=== PATIENT | male | born 1995 | race Caucasian/White ===

== ENCOUNTER 2016-12-04 17:59 | Emergency (ER) | payer OTHER ==
[~2016-12-04] VITALS: Wt 99.5 kg
[~2016-12-04 17:59] MED LIST: DENIES
[2016-12-04] MEDS ORDERED: IBUP-1542 PO (19:53)
[2016-12-04] MEDS ORDERED: BACL10TA PO (19:54)
[2016-12-04] MEDS ORDERED: HYDR-906 PO (19:54)
--- NOTE | 2016-12-04 19:58 | ERD ---
ER Documentation Chief Complaint Date/Time DATE: 12/04/16 TIME: 19:54 Chief Complaint LOWER BACK PAINX today HPI Patient is a 21-year-old male who presents to the emergency Department with lower back pain 1 day. Patient states that he was squatting at the gym with heavy weights earlier today when his pain started. Patient reports a sharp pain in his mid lower back which does radiate down his right leg. He states he has intermittent tingling and numbness in his right leg. Patient states his current pain level is an 8 out 10. Patient denies taking any pain medication. Patient denies any saddle anesthesia, bowel incontinence, urinary incontinence, fever, chills, nausea, vomiting. Patient reports difficulty ambulating moving secondary to pain. Denies any previous injuries to his lower back. ROS All systems reviewed and are negative except as per history of present illness. Medications Home Meds Active Scripts Hydrocodone/Acetaminophen ([place] 5-325 Tablet) 1 Each Tablet, 1 TAB PO Q6H Y for PAIN, #7 TAB Prov:UZIEL MERIDA PA-C 12/04/16 Baclofen* (Baclofen*) 10 Mg Tablet, 10 MG PO Q8, #20 TAB Prov:UZIEL MERIDA-C 12/04/16 Ibuprofen* (Motrin*) 600 Mg Tab, 600 MG PO Q6, #30 TAB Prov:UZIEL MERIDA PA-C 12/04/16 Reported Medications [Denies] No Conflict Check 06/25/11 Allergies Allergies: Coded Allergies: No Known Allergies (Verified Allergy, Mild, 06/25/11) PMhx/Soc History of Surgery: No Anesthesia Reaction: No Hx Neurological Disorder: No Hx Respiratory Disorders: No Hx Cardiac Disorders: No Hx Psychiatric Problems: No Hx Miscellaneous Medical Probl: Yes (DENIES MEDICAL PROBLEMS) Hx Alcohol Use: No Hx Substance Use: No Hx Tobacco Use: Yes FmHx Family History: No diabetes Physical Exam Vitals Vital Signs Date Time Temp Pulse Resp B/P Pulse Ox O2 Delivery O2 Flow Rate FiO2 12/04/16 21:00 98.1 69 18 127/61 100 Room Air 12/04/16 18:01 98.1 77 18 130/77 99 Physical Exam GENERAL: Well-developed, well-nourished male. Appears in no acute distress. HEAD: Normocephalic, atraumatic. EYES: Pupils are equally reactive bilaterally. EOMs grossly intact. No conjunctival erythema. ENT: Moist mucous membranes. No uvula deviation. No kissing tonsils. NECK: Supple. No lymphadenopathy or thyromegaly. No meningismus. LUNG: Clear to auscultation bilaterally. No rhonchi, wheezing, rales or coarse breath sounds. HEART: Regular rate and rhythm. No murmurs, rubs or gallops. ABDOMEN: No scars, ecchymosis or rashes noted. Soft, nontender, and nondistended. Positive bowel sounds in all four quadrants. No rebound tenderness , no guarding. (-) McBurneys point tenderness. No CVA tenderness. BACK: No midline tenderness. Tender to palpation in the lumbar paraspinal muscles bilaterally. Positive right straight leg raise. EXTREMITIES: Equal pulses bilaterally. No peripheral clubbing, cyanosis or edema. No unilateral leg swelling. NEUROLOGIC: Alert and oriented. Moving all four extremities without any difficulty. Normal speech. Steady gait however decreased gait speed secondary to pain. SKIN: Normal color. Warm and dry. No rashes or lesions. Procedures/MDM ED COURSE: The patient was stable throughout ED course. I kept the patient and/or family informed of laboratory and diagnostic imaging results throughout the ED course. DIAGNOSTIC IMAGING: Read by radiologist. DIAGNOSTIC IMAGING REPORT Patient: CASEY PRABHAKAR : 1995 Age: 21 Sex: M MR #: [id number] DOS: 12/04/16 1934 Ordering MD: UZIEL MERIDA PA-C Location: [facility] Room/Bed: PROCEDURE: XR L-Spine. CLINICAL INDICATION: Low back pain. TECHNIQUE: AP, lateral, and cone down views of the lumbar spine were obtained. COMPARISON: None FINDINGS: Bilateral pars defects are seen at L5-S1. Approximately 3 mm of anterolisthesis at L5-S1 is seen. The remainder of the lumbar lordosis is straightened. Mild to moderate disk height loss at L5-S1 is seen. The vertebral body and remaining disk space heights are normal. No acute fracture or subluxation is seen. No paravertebral soft tissue abnormality is seen. IMPRESSION: Approximately 3 mm of anterolisthesis at L5-S1 secondary to bilateral pars defects. RPTAT: HPNM Physician Issa Date Time Electronically viewed and signed by Lamont Villa Physician on 12/04/2016 20 :29 / CC: UZIEL MERIDA PA-C PROCEDURES: None. MEDICATIONS GIVEN: Patient was offered analgesics and emergency department however he declined it. MEDICAL DECISION MAKING: This is a 21-year-old male who presents with lower back pain with radiation down his right leg status post lifting heavy weights and squatting while at the gym earlier today. Vital signs were reviewed. Patient was afebrile. Patient denied any saddle anesthesia, urinary incontinence, bowel incontinence. Lumbar x-ray showed Approximately 3 mm of anterolisthesis at L5-S1 secondary to bilateral pars defects. Given these findings, the patients presentation is most consistent with anterolisthesis at L5-S1. I have a much lower clinical concern for cauda equine syndrome, spinal fractures, epidural abscess, spinal metastases , osteomyelitis, aortic dissection, ruptured or leaking AA, DJD, pyelonephritis or nephrolithiasis. PRESCRIPTIONS: Ibuprofen, Baclofen, [place] DISCHARGE: At this time, patient is stable for discharge and outpatient management. I discussed the x-ray findings with my supervising physician, Dr. Nelson, who agrees the patient is stable for outpatient management. Patient was advised to not lift any heavy weights 1-2 weeks. RICE therapy and ROM exercises. XR report and CD given to the patient. I have instructed the patient to follow-up with his /her primary care physician in 1-2 days. I have discussed with the patient the possibility of needing to see an evaluation specialist for further workup and imaging if the pain persists. I have instructed the patient to promptly return to the ER for any new or worsening symptoms including increased pain, swelling, warmth, urinary incontinence, stool incontinence, weakness or numbness. The patient and/or family expressed understanding of and agreement with this plan. All questions were answered. Home care instructions were provided. Departure Diagnosis: Primary Impression: Anterolisthesis Additional Impression: Injury of back Encounter type: initial encounter Qualified Code: S39.92XA - Injury of back , initial encounter Condition: Stable Patient Instructions: Back Pain W/ Sciatica Referrals: DEYVI MICHELE (PCP) Additional Instructions: No heavy lifting for the next week. Back ROM motions advised as discussed. See handout information. Medication as prescribed. If symptoms persist patient may need to see an evaluation specialist and/or obtain physical therapy for further management. Call your primary care doctor TOMORROW for an appointment during the next 1-2 days.See the doctor sooner or return here if your condition worsens before your appointment time. UZIEL MERIDA PA-C Dec 04, 2016 19:58
--- NOTE | 2016-12-04 20:29 | RADRPT ---
PROCEDURE: XR L-Spine. CLINICAL INDICATION: Low back pain. TECHNIQUE: AP, lateral, and cone down views of the lumbar spine were obtained. COMPARISON: None FINDINGS: Bilateral pars defects are seen at L5-S1. Approximately 3 mm of anterolisthesis at L5-S1 is seen. The remainder of the lumbar lordosis is straightened. Mild to moderate disk height loss at L5-S1 is seen. The vertebral body and remaining disk space heights are normal. No acute fracture or subluxat ion is seen. No paravertebral soft tissue abnormality is seen. IMPRESSION: Approximately 3 mm of anterolisthesis at L5-S1 secondary to bilateral pars defects. RPTAT: HPNM Physician Issa Date Time Electronically viewed and signed by Physician Issa on 12/04/2016 20:29 /
[2016-12-04 21:00] VITALS: BP 127/61; PULSE 69; RESP 18; TEMP 98.1
== END 2016-12-04 21:00 | disposition home or self-care (01) ==
LOC: FTE 17:59
DX: M43.16 Spondylolisthesis, lumbar region (principal); X50.0XXA Overexertion from strenuous movement or load, initial encounter; Y92.39 Other specified sports and athletic area as the place of occurrence of the external cause; Z72.0 Tobacco use
CPT/HCPCS: 72100